=== PATIENT | female | born 1975 | race Caucasian/White ===

== ENCOUNTER 2018-01-05 08:54 | Day surgery (SDC) | payer OTHER ==
[~2018-01-05] VITALS: Ht 157.5 cm; Wt 109.9 kg
[~2018-01-05 08:54] MED LIST: ALBU90OI INH; AZIT250 PO; BENZ100A PO; CEPH500 PO; CIPR500 PO; CLIN300 PO; CODACE30 PO; CRUTCH2 USE; ERYT333ERA PO; GUAI600ER PO; HYDACE5 PO; IBUPROFEN; LORA10ER PO; PHENA100 PO; PHENA200 PO; PRED20 PO; PSEU30 PO; RXALBOI INH; RXTRAM50 PO; SULTRIDS PO; TRAM50 PO; Zovirax800 MG PO
== END 2018-01-05 11:16 | disposition home or self-care (01) ==
LOC: ORSCSDS 08:54
PROVIDERS: Orthopaedic Surgery
PROC: 01N54ZZ Release Median Nerve, Percutaneous Endoscopic Approach (ICD-10-PCS; principal; 2018-01-05 10:00)
DX: G56.02 Carpal tunnel syndrome, left upper limb (principal); Z87.891 Personal history of nicotine dependence; E66.9 Obesity, unspecified; Z68.41 Body mass index [BMI] 40.0-44.9, adult
CPT/HCPCS: J0171; J0690; J2250; J3010; J7120

== ENCOUNTER → 2019-07-29 | Outpatient (CLI) | payer OTHER ==
[2019-07-30 15:07] LABS: HPV 16 Negative (Negative); HPV 18 Negative (Negative); HPV OTHER HR TYPES Negative (Negative)
== END ==
LOC: LAB SHORT 14:43 → LAB 14:43
PROVIDERS: Registered Nurse Community Health
DX: Z01.419 Encounter for gynecological examination (general) (routine) without abnormal findings (principal)
CPT/HCPCS: 87624; G0123

== ENCOUNTER → 2020-03-30 | Outpatient (CLI) | payer OTHER ==
[2020-03-30 13:33] LABS: BASOPHILS ABSOLUTE AUTO 0.03 K/mm3 (0.00-0.23); BASOPHILS PERCENT AUTO 1 % (0-2); EOSINOPHILS ABSOLUTE AUTO 0.05 K/mm3 (0.00-0.68); EOSINOPHILS PERCENT AUTO 1 % (0-6); Hematocrit 43.9 % (33.0-51.0); Hemoglobin 14.3 g/dL (11.5-16.0); IMMATURE GRAN ABSOLUTE AUTO 0.02 K/mm3 (0.00-0.10); IMMATURE GRAN PERCENT AUTO 0 % (0-1); LYMPHOCYTES ABSOLUTE AUTO 1.54 K/mm3 (0.84-5.20); LYMPHOCYTES PERCENT AUTO 23 % (21-46); MONOCYTES ABSOLUTE AUTO 0.56 K/mm3 (0.16-1.47); MONOCYTES PERCENT AUTO 8 % (4-13); Mean Corpuscular HGB 28.3 pg (26.0-34.0); Mean Corpuscular HGB Conc 32.6 g/dL (31.5-36.5); Mean Corpuscular Volume 87 fL (80-100); Mean Platelet Volume 9.5 fL (9.1-12.4); NEUTROPHILS ABSOLUTE AUTO 4.43 K/mm3 (1.96-9.15); NEUTROPHILS PERCENT AUTO 67 % (41-73); Platelet Count 204 K/mm3 (150-400); RDW Standard Deviation 40.6 fL (35.1-46.3); Red Blood Cell Count 5.05 M/mm3 (3.80-5.20); White Blood Cell Count 6.63 K/mm3 (4.00-11.30)
[2020-03-30 14:49] LABS: Alanine Aminotransfer (ALT/SGP 31 U/L (12-78); Albumin, Blood 3.6 g/dL (3.4-5.0); Alk Phos 90 U/L (50-136); Anion Gap 7 mmol/L (6-16); Aspartate Aminotrans (AST/SGOT 20 U/L (12-37); Bilirubin, Total 0.8 mg/dL (0.1-1.0); Blood Urea Nitrogen 5 mg/dL (8-24); Bun/Creatinine Ratio 8.4 (12.0-20.0); CHOL/HDL RATIO 3.2; CO2, Blood 27 mmol/L (21-32); Calcium, Blood 8.6 mg/dL (8.5-10.1); Chloride, Blood 105 mmol/L (98-108); Cholesterol 125 mg/dL (50-200); Globulin, Blood 3.7 g/dL (2.2-4.0); Glomerular Filtration Rate >60 (60-); Glucose, Blood 85 mg/dL (70-99); HDL Cholesterol 39 mg/dL (>39); LDL/HDL RATIO 1.8; Low Density Lipoprotein Chol 72 mg/dL (0-110); Potassium, Blood 3.3 mmol/L (3.5-5.5); Sodium, Blood 139 mmol/L (136-145); Total Protein, Blood 7.3 g/dL (6.4-8.2); Triglycerides 72 mg/dL (30-160); Very Low Density Lipoprot Chol 14 mg/dL (6-32)
== END ==
LOC: LAB 12:43 → LAB SHORT 12:43
PROVIDERS: Family Medicine
DX: E66.01 Morbid (severe) obesity due to excess calories (principal); Z68.41 Body mass index [BMI] 40.0-44.9, adult
CPT/HCPCS: 80053; 80061; 85025

== ENCOUNTER → 2021-12-27 | Outpatient (CLI) | payer OTHER ==
[2021-12-27 19:53] LABS: Alanine Aminotransfer (ALT/SGP 29 U/L (12-78); Albumin, Blood 3.7 g/dL (3.4-5.0); Albumin/Globulin Ratio 1.2 (0.8-1.8); Alk Phos 81 U/L (50-136); Anion Gap 8 mmol/L (6-16); Aspartate Aminotrans (AST/SGOT 20 U/L (12-37); Bilirubin, Total 0.6 mg/dL (0.1-1.0); Blood Urea Nitrogen 10 mg/dL (8-24); Bun/Creatinine Ratio 14.4 (12.0-20.0); CO2, Blood 24 mmol/L (21-32); Calcium, Blood 8.9 mg/dL (8.5-10.1); Chloride, Blood 109 mmol/L (98-108); Globulin, Blood 3.1 g/dL (2.2-4.0); Glomerular Filtration Rate >60 (60-); Glucose, Blood 106 mg/dL (70-99); Potassium, Blood 3.8 mmol/L (3.5-5.5); Sodium, Blood 141 mmol/L (136-145); Total Protein, Blood 6.8 g/dL (6.4-8.2)
== END | disposition home or self-care (01) ==
LOC: LAB 17:53 → LAB SHORT 17:53
PROVIDERS: Nurse Practitioner Family
DX: Z11.59 Encounter for screening for other viral diseases (principal); E87.6 Hypokalemia
CPT/HCPCS: 80053; 86803

== ENCOUNTER 2022-09-01 11:33 | Emergency (ER) | payer OTHER ==
[~2022-09-01] VITALS: Ht 157.5 cm; Wt 103.4 kg
== END 2022-09-01 13:47 | disposition home or self-care (01) ==
LOC: ER 11:33
DX: M25.561 Pain in right knee (principal); M25.562 Pain in left knee; Z88.0 Allergy status to penicillin; Z88.1 Allergy status to other antibiotic agents; Z87.891 Personal history of nicotine dependence
CPT/HCPCS: 29505; 73562-RT; 99283-25

== ENCOUNTER → 2023-11-08 | Outpatient (CLI) | payer OTHER | LOC: LAB SHORT 17:29 → LAB 17:29 | DX: R22.42 Localized swelling, mass and lump, left lower limb (principal) | CPT/HCPCS: 85379 ==

== ENCOUNTER → 2024-12-23 | Outpatient (CLI) | payer OTHER ==
[2024-12-23 17:37] LABS: BASOPHILS ABSOLUTE AUTO 0.02 K/mm3 (0.00-0.23); BASOPHILS PERCENT AUTO 0 % (0-2); EOSINOPHILS ABSOLUTE AUTO 0.05 K/mm3 (0.00-0.68); EOSINOPHILS PERCENT AUTO 1 % (0-6); Hematocrit 40.9 % (33.0-51.0); Hemoglobin 14.1 g/dL (11.5-16.0); IMMATURE GRAN ABSOLUTE AUTO 0.01 K/mm3 (0.00-0.10); IMMATURE GRAN PERCENT AUTO 0 % (0-1); LYMPHOCYTES ABSOLUTE AUTO 1.31 K/mm3 (0.84-5.20); LYMPHOCYTES PERCENT AUTO 23 % (21-46); MONOCYTES ABSOLUTE AUTO 0.54 K/mm3 (0.16-1.47); MONOCYTES PERCENT AUTO 9 % (4-13); Mean Corpuscular HGB 29.6 pg (26.0-34.0); Mean Corpuscular HGB Conc 34.5 g/dL (31.5-36.5); Mean Corpuscular Volume 86 fL (80-100); Mean Platelet Volume 9.6 fL (9.1-12.4); NEUTROPHILS ABSOLUTE AUTO 3.81 K/mm3 (1.96-9.15); NEUTROPHILS PERCENT AUTO 66 % (41-73); Platelet Count 213 K/mm3 (150-400); RDW Coefficient Variation 12.8 % (11.7-14.2); RDW Standard Deviation 39.6 fL (35.1-46.3); Red Blood Cell Count 4.77 M/mm3 (3.80-5.20); White Blood Cell Count 5.74 K/mm3 (4.00-11.30)
[2024-12-23 18:46] LABS: Alanine Aminotransfer (ALT/SGP 32 U/L (12-78); Albumin, Blood 3.8 g/dL (3.4-5.0); Albumin/Globulin Ratio 1.2 (0.8-1.8); Alk Phos 76 U/L (50-136); Anion Gap 9 mmol/L (3-11); Aspartate Aminotrans (AST/SGOT 24 U/L (12-37); Bilirubin, Total 0.8 mg/dL (0.1-1.0); Blood Urea Nitrogen 5 mg/dL (8-24); Bun/Creatinine Ratio 8.1 (12.0-20.0); CHOL/HDL RATIO 2.2; CO2, Blood 27 mmol/L (21-32); Calcium, Blood 8.8 mg/dL (8.5-10.1); Chloride, Blood 107 mmol/L (98-108); Cholesterol 125 mg/dL (50-200); Creatinine, Blood 0.62 mg/dL (0.40-1.00); Globulin, Blood 3.1 g/dL (2.2-4.0); Glomerular Filtration Rate 109 (60-); Glucose, Blood 84 mg/dL (70-99); HDL Cholesterol 56 mg/dL (>39); Low Density Lipoprotein Chol 58 mg/dL (0-110); Potassium, Blood 3.7 mmol/L (3.5-5.5); Sodium, Blood 139 mmol/L (136-145); Total Protein, Blood 6.9 g/dL (6.4-8.2); Triglycerides 57 mg/dL (30-160); Very Low Density Lipoprot Chol 11 mg/dL (6-32)
== END | disposition home or self-care (01) ==
LOC: LAB SHORT 11:35 → LAB 11:35
PROVIDERS: Nurse Practitioner Family
DX: M47.819 Spondylosis without myelopathy or radiculopathy, site unspecified (principal); I10 Essential (primary) hypertension
CPT/HCPCS: 80053; 80061; 85025; 86141

== ENCOUNTER 2025-03-14 20:45 | Emergency (ER) | payer OTHER ==
[~2025-03-14] VITALS: Ht 154.9 cm; Wt 94.8 kg
[2025-03-14 21:25] VITALS: BP 128/88
== END 2025-03-14 23:31 | disposition home or self-care (01) ==
LOC: ER 20:45
DX: R07.81 Pleurodynia (principal); Z53.29 Procedure and treatment not carried out because of patient's decision for other reasons
CPT/HCPCS: 71046; 99281-25

== ENCOUNTER → 2025-06-03 | Outpatient (CLI) | payer OTHER ==
[~2025-06-03] MED LIST changes: +Adipex-P37.5 M1 PO; +ELIQUIS2.5 MG PO; +LOSA50 PO
== END | disposition home or self-care (01) ==
LOC: LAB SHORT 18:16 → LAB 18:16
DX: L30.9 Dermatitis, unspecified (principal)
CPT/HCPCS: 87102; 87220

== ENCOUNTER → 2025-06-19 | Outpatient (CLI) | payer OTHER ==
[~2025-06-19] MED LIST changes: -ELIQUIS2.5 MG PO
== END ==
LOC: LAB 11:17 → LAB SHORT 11:17
DX: J02.9 Acute pharyngitis, unspecified (principal)
CPT/HCPCS: 87081

== ENCOUNTER 2025-06-24 07:43 | Day surgery (SDC) | payer OTHER ==
[~2025-06-24] VITALS: Ht 157.5 cm; Wt 101.6 kg
[2025-06-24] VITALS (13 sets, daily range): BP systolic 98–141; BP diastolic 56–86
[2025-06-24] MEDS ORDERED: CeFAZolin Sodium 2,000 MG in NS 100 ML IV SCH ×2 (07:45→18:00)
[2025-06-24] MEDS ORDERED: Chlorhexidine Mouth Care 15 ML UDC MT SCH (07:45)
[2025-06-24] MEDS ORDERED: Ropivacaine 0.5% HCl/Pf 123.125 MG,EPINEPHrine HCL 0.25 MG,Ketorolac Tromethamine 15 MG... INFIL SCH (07:45)
[2025-06-24] MEDS ORDERED: Tranexamic Acid 100 ML IV SCH (07:48)
--- NOTE | 2025-06-24 08:22 | NUR ---
Ambulatory in Day Surgery History, Chart, Medications and Allergies reviewed before start of procedure. Pre-Op teaching done. Pt verbalizes understanding.
[2025-06-24] MEDS ORDERED: FentaNYL Citrate 50 MCG/ML 2 ML Injection ONE (09:13)
[2025-06-24] MEDS ORDERED: Midazolam HCl 1MG / ML 2ML Vial ONE ×2 (09:13→10:20)
[2025-06-24] MEDS ORDERED: HYDROmorphone HCl/Pf 1MG SYR IV PRN ×3 (11:00→11:15)
[2025-06-24] MEDS ORDERED: FentaNYL Citrate 50 MCG/ML 2 ML Injection IV PRN ×2 (11:00)
[2025-06-24] MEDS ORDERED: Ondansetron HCl 2 MG / ML 2ML Vial IV PRN ×2 (11:05→11:15)
[2025-06-24] MEDS ORDERED: Metoclopramide HCl 5MG / ML 2ML Vial IV PRN (11:15)
[2025-06-24] MEDS ORDERED: Magnesium Hydroxide Conc 10 ML UDC PO PRN (11:15)
[2025-06-24] MEDS ORDERED: Dexamethasone Sod Phos 10 MG/ML 1ML VIAL ONE (11:46)
[2025-06-24] MEDS ORDERED: Ondansetron HCl 2 MG / ML 2ML Vial ONE (11:46)
[2025-06-24] MEDS ORDERED: Ketorolac Tromethamine 15mg Vial IV SCH (12:00)
--- NOTE | 2025-06-24 18:37 | NUR ---
SHIFT SUMMARY PATIENT IS ABLE TO AMBULATE INTO THE BATHROOM AND VOID. VSS, TOLERATING CL INTAKE. PATIENT REPORTS NUMBNESS LASTING IN THE LEFT FOOT. HAS NOT WORKED WITH PT TODAY. IV INFILTRATED THIS EVENING PATIENT DOES NOT WANT A NEW IV. EDUCATED ON MEDICATIONS AND NOT BEING ABLE TO GIVE IV MEDS. PATIENT IS NOT CONFORTABLE TO GO HOME IF FOOT IS NUMB. USES FWW, GB. CALL LIGHT IS IN REACH FAMILY IN ROOM WITH PATIENT.
--- NOTE | 2025-06-24 19:30 | NUR ---
ASSUMED CARE ASSUMED CARE, BEDSIDE REPORT COMPLETE. POD 0 S/P L KNEE, DRESSING CDI. POLAR PACK IN PLACE. PT REPORTS PAIN AT TOLERABLE LEVEL. IS ABLE TO VOID POST-OP. REPORTS N/V, CHITRA SCANT AMOUNT OF PO INTAKE. AWAITING IV LINE PLACEMENT. IS A/OX4 WITH VSS. PT CURRENTLY UP IN CHAIR, SIPPING ON WATER. HAS CALL LIGHT IN REACH.
[2025-06-24] MEDS ORDERED: Ondansetron 4 MG SoluTab SL PRN (21:25)
--- NOTE | 2025-06-24 22:25 | NUR ---
UPDATE PT REFUSING IV INSERTION. RISK VS BENEFIT EDUCATION PROVIDED. PROVIDER NOTIFIED BY BRAKE REPAIR SUPERVISOR. NEW ORDERS OBTAINED. SEE EMAR. PT CHITRA PO MEDS. REPORTS NAUSEA AND PAIN HAVE IMPROVED. DENIES NEEDS. HAS CALL LIGHT IN REACH.
[2025-06-25 00:15] VITALS: BP 123/80
[2025-06-25 05:04] LABS: BASOPHILS ABSOLUTE AUTO 0.02 K/mm3 (0.00-0.23); BASOPHILS PERCENT AUTO 0 % (0-2); EOSINOPHILS ABSOLUTE AUTO 0.00 K/mm3 (0.00-0.68); EOSINOPHILS PERCENT AUTO 0 % (0-6); Hematocrit 37.9 % (33.0-51.0); Hemoglobin 12.5 g/dL (11.5-16.0); IMMATURE GRAN ABSOLUTE AUTO 0.10 K/mm3 (0.00-0.10); IMMATURE GRAN PERCENT AUTO 1 % (0-1); LYMPHOCYTES ABSOLUTE AUTO 0.72 K/mm3 (0.84-5.20); LYMPHOCYTES PERCENT AUTO 4 % (21-46); MONOCYTES ABSOLUTE AUTO 0.96 K/mm3 (0.16-1.47); MONOCYTES PERCENT AUTO 6 % (4-13); Mean Corpuscular HGB Conc 33.0 g/dL (31.5-36.5); Mean Corpuscular Volume 84 fL (80-100); NEUTROPHILS ABSOLUTE AUTO 14.83 K/mm3 (1.96-9.15); NEUTROPHILS PERCENT AUTO 89 % (41-73); NRBC ABSOLUTE 0.00 K/mm3 (0.00-0.02); NRBC Auto 0.0 /100 WBC (0.0-0.2); Platelet Count 186 K/mm3 (150-400); RDW Coefficient Variation 13.0 % (11.7-14.2); RDW Standard Deviation 39.6 fL (35.1-46.3)
--- NOTE | 2025-06-25 05:09 | NUR ---
SHIFT SUMMARY POD 1 LEFT TKA. DRESSING/ALLYSON WRAP CDI; POLAR PACK IN PLACE. PT UP IN ROOM WITH MIN SBA, FWW, GB. DENIES N/V, CHITRA SMALL AMOUNT PO. PT REFUSED IV PLACEMENT. PAIN MANAGED PER EMAR. PLAN TO AMB IN HALLWAY AND WORK WITH THERAPY, THEN DC HOME.
[2025-06-25 05:11] VITALS: BP 124/75
[2025-06-25 05:29] LABS: Anion Gap 9.0 mmol/L (3-11); Blood Urea Nitrogen 8.0 mg/dL (8-24); CO2, Blood 24.0 mmol/L (21-32); Calcium, Blood 8.7 mg/dL (8.5-10.1); Chloride, Blood 110.0 mmol/L (98-108); Creatinine, Blood 0.62 mg/dL (0.40-1.00); Glucose, Blood 118.0 mg/dL (70-99); Potassium, Blood 4.1 mmol/L (3.5-5.5); Sodium, Blood 139.0 mmol/L (136-145)
[2025-06-25 07:21] VITALS: BP 120/73
[2025-06-25] MEDS ORDERED: ELIQUIS2.5 MG PO (08:53)
--- NOTE | 2025-06-25 11:48 | NUR ---
DISCHARGE PATIENT VSS, WORKS WITH THERAPY, VOIDING, PAIN MANAGED. ALL DC INSTRUCTIONS READ AND SIGNED. ALL BELONGINGS AND PRESCRIPTIONS WITH PAITENT AND FAMILY. PATIENT LEAVES VIA PRIVATE CAR.
== END 2025-06-25 10:45 | disposition home or self-care (01) ==
LOC: ORSCMMR 07:43 → ORD 09:15 → ORSCMMR 09:15 → SURS 12:56 → ORSCMMR 06-25 10:45
PROVIDERS: Orthopaedic Surgery
PROC: 0SRD0JA Replacement of Left Knee Joint with Synthetic Substitute, Uncemented, Open Approach (ICD-10-PCS; principal; 2025-06-24 09:15)
DX: M17.12 Unilateral primary osteoarthritis, left knee (principal); I10 Essential (primary) hypertension; Z79.899 Other long term (current) drug therapy; Z68.41 Body mass index [BMI] 40.0-44.9, adult
CPT/HCPCS: 36415; 73560-LT; 80048; 85025; 97110; 97116; 97162; A9270; C1713; C1776; J0690; J0735; J1100; J1885; J2250; J2405; J2704; J2765; J2795; J3010; J7120

== ENCOUNTER 2025-07-29 06:04 | Day surgery (SDC) | payer OTHER ==
[~2025-07-29 06:04] MED LIST changes: +ELIQUIS2.5 MG PO; +MUPIROCIN111 TOP; +OMEP20ER PO
[2025-07-29 06:28] VITALS: BP 155/95
--- NOTE | 2025-07-29 07:15 | NUR ---
History, Chart, Medications and Allergies reviewed before start of procedure. Patient States Post-Procedure ride home has been arranged. Pre-Op teaching done. Pt verbalizes understanding.
[2025-07-29] MEDS ORDERED: Rocuronium Bromide 10 MG/ML 5ML Injection IV ONE (07:26)
[2025-07-29] MEDS ORDERED: SuccINYLCHOLINE Chloride 100 MG/5 ML 5MLSYR ONE (07:26)
[2025-07-29] MEDS ORDERED: Ondansetron HCl 2 MG / ML 2ML Vial ONE (07:26)
[2025-07-29] MEDS ORDERED: Dexamethasone Sod Phos 10 MG/ML 1ML VIAL ONE (07:26)
[2025-07-29] MEDS ORDERED: Ketorolac Tromethamine 30mg Vial ONE (07:28)
[2025-07-29] MEDS ORDERED: FentaNYL Citrate 50 MCG/ML 2 ML Injection ONE (07:28)
[2025-07-29] MEDS ORDERED: FentaNYL Citrate 50 MCG/ML 2 ML Injection IV PRN ×2 (07:50)
[2025-07-29] MEDS ORDERED: Labetalol HCL 5 MG/ML 4ML Injection (Single Dose) IV PRN (07:50)
[2025-07-29] MEDS ORDERED: HYDROmorphone HCl/Pf 1MG SYR IV PRN (07:50)
[2025-07-29 07:51] VITALS: BP 133/86
[2025-07-29] MEDS ORDERED: Ondansetron HCl 2 MG / ML 2ML Vial IV PRN (07:55)
[2025-07-29 08:00] VITALS: BP 131/96
[2025-07-29 08:17] VITALS: BP 120/91
[2025-07-29 08:36] VITALS: BP 122/90
--- NOTE | 2025-07-29 08:54 | NUR ---
Discharge instructions reviewed with patient. Patient verbalizes understanding. Copy given to patient to take home. Ice pack provided, medicated before discharge. Patient States Post-Procedure ride home has been arranged. Discharged via wheelchair to private car for ride home.
== END 2025-07-29 08:57 | disposition home or self-care (01) ==
LOC: ORSCMMR 06:04 → ORD 07:30 → ORSCMMR 07:30
PROVIDERS: Orthopaedic Surgery
PROC: 0SSDXZZ Reposition Left Knee Joint, External Approach (ICD-10-PCS; principal; 2025-07-29 07:30)
DX: M24.662 Ankylosis, left knee (principal); Z96.652 Presence of left artificial knee joint; I10 Essential (primary) hypertension; Z79.01 Long term (current) use of anticoagulants; Z79.899 Other long term (current) drug therapy
CPT/HCPCS: 73560-LT; A9270; J0330; J1100; J1885; J2405; J2704; J3010; J7120

== ENCOUNTER 2025-08-19 10:49 | Day surgery (SDC) | payer OTHER ==
[~2025-08-19] VITALS: Ht 157.5 cm; Wt 97.7 kg
[~2025-08-19 10:49] MED LIST changes: +ALPR.25 PO; +HYDMOR2 PO; +MOBIC15 MG PO
[2025-08-19 13:41] VITALS: BP 132/87
--- NOTE | 2025-08-19 13:47 | NUR ---
Pre-Op teaching done. Pt verbalizes understanding. History, Chart, Medications and Allergies reviewed before start of procedure. Ambulatory in Day Surgery. Patient confirms NPO status and agrees with scheduled surgery. Patient States Post-Procedure ride home has been arranged.
[2025-08-19] MEDS ORDERED: Midazolam HCl 1MG / ML 2ML Vial ONE (15:42)
[2025-08-19] MEDS ORDERED: Ketorolac Tromethamine 30mg Vial ONE (15:49)
[2025-08-19] MEDS ORDERED: Ondansetron HCl 2 MG / ML 2ML Vial ONE (15:49)
[2025-08-19] MEDS ORDERED: Dexamethasone Sod Phos 10 MG/ML 1ML VIAL ONE (15:49)
[2025-08-19] MEDS ORDERED: HYDROmorphone HCl/Pf 1MG SYR IV PRN ×2 (15:55→16:00)
[2025-08-19] MEDS ORDERED: Metoclopramide HCl 5MG / ML 2ML Vial IV PRN (15:55)
[2025-08-19] MEDS ORDERED: Albuterol 2.5 MG/3 ML VIAL INH PRN (15:55)
[2025-08-19] MEDS ORDERED: FentaNYL Citrate 50 MCG/ML 2 ML Injection IV PRN ×2 (16:00)
[2025-08-19 16:01] VITALS: BP 150/99
[2025-08-19 16:14] VITALS: BP 140/95
--- NOTE | 2025-08-19 16:33 | NUR ---
Discharge instructions reviewed with patient. Patient verbalizes understanding. Copy given to patient to take home. Ice bag to L Knee. Patient States Post-Procedure ride home has been arranged. Discharged via wheelchair to private car for ride home.
== END 2025-08-19 16:40 | disposition home or self-care (01) ==
LOC: ORSCMMR 10:49 → ORD 12:15 → ORSCMMR 12:15
PROVIDERS: Orthopaedic Surgery
PROC: 0SSDXZZ Reposition Left Knee Joint, External Approach (ICD-10-PCS; principal; 2025-08-19 15:00)
DX: T84.82XA Fibrosis due to internal orthopedic prosthetic devices, implants and grafts, initial encounter (principal); Z96.652 Presence of left artificial knee joint; I10 Essential (primary) hypertension; G47.33 Obstructive sleep apnea (adult) (pediatric); Z79.01 Long term (current) use of anticoagulants; Z79.899 Other long term (current) drug therapy
CPT/HCPCS: A9270; J1100; J1885; J2250; J2405; J2704; J7120